=== PATIENT | female | born 1950 | race Two or more races ===

== ENCOUNTER 2018-03-19 01:54 | Emergency (ER) | payer OTHER ==
[~2018-03-19] VITALS: Ht 157.5 cm; Wt 49.9 kg
[~2018-03-19 01:54] MED LIST: VITAMINA C
[2018-03-19] MEDS ORDERED: PREVACID15 MG (02:43)
[2018-03-19] MEDS ORDERED: SINVASTATIN (02:43)
[2018-03-19] MEDS ORDERED: BUTALB-ACETAMI1 EACH PO (03:55)
== END 2018-03-19 10:21 | disposition home or self-care (01) ==
LOC: ER 01:54
DX: G44.209 Tension-type headache, unspecified, not intractable (principal)

== ENCOUNTER 2019-07-13 14:32 | Emergency (ER) | payer OTHER ==
[~2019-07-13] VITALS: Ht 157.5 cm; Wt 51.7 kg
[~2019-07-13 14:32] MED LIST changes: +BUTALB-ACETAMI1 EACH PO; +PREVACID15 MG; +SINVASTATIN
[2019-07-13] MEDS ORDERED: ASA81 MG PO (15:17)
[2019-07-13] MEDS ORDERED: IRON325 MG PO (15:18)
[2019-07-13] MEDS ORDERED: SINVASTATIN PO (15:18)
[2019-07-13] MEDS ORDERED: PREVACID30 MG PO (15:18)
[2019-07-13] MEDS ORDERED: EVISTA60 MG PO (15:18)
[2019-07-13] MEDS ORDERED: CALCIUM500 M2 PO (15:19)
== END 2019-07-13 22:11 | disposition home or self-care (01) ==
LOC: ER 14:32
DX: H81.13 Benign paroxysmal vertigo, bilateral (principal)

== ENCOUNTER 2020-02-11 00:57 | Emergency (ER) | payer OTHER ==
[~2020-02-11] VITALS: Ht 157.5 cm; Wt 50.8 kg
[~2020-02-11 00:57] MED LIST changes: +ASA81 MG PO; +CALCIUM500 M2 PO; +EVISTA60 MG PO; +IRON325 MG PO; +PREVACID30 MG PO; +SINVASTATIN PO
== END 2020-02-11 03:37 | disposition home or self-care (01) ==
LOC: ER 00:57
DX: F41.8 Other specified anxiety disorders (principal)

== ENCOUNTER → 2020-05-23 | Emergency (ER) | payer OTHER | END | disposition left against medical advice (07) | LOC: ER 00:08 | DX: Z53.20 Procedure and treatment not carried out because of patient's decision for unspecified reasons (principal) ==

== ENCOUNTER → 2020-06-21 | Emergency (ER) | payer OTHER | END | disposition left against medical advice (07) | LOC: ER 03:13 | DX: Z53.21 Procedure and treatment not carried out due to patient leaving prior to being seen by health care provider (principal) ==

== ENCOUNTER 2020-07-28 01:03 | Emergency (ER) | payer OTHER ==
[~2020-07-28] VITALS: Ht 157.5 cm; Wt 49.0 kg
[2020-07-28] MEDS ORDERED: SIMVASTATIN5 MG PO (01:16)
[2020-07-28] MEDS ORDERED: COZAAR50 MG PO (01:17)
[2020-07-28] MEDS ORDERED: VISTARIL25 MG PO (02:19)
== END 2020-07-28 02:25 | disposition home or self-care (01) ==
LOC: ER 01:03
DX: R06.02 Shortness of breath (principal); F41.8 Other specified anxiety disorders

== ENCOUNTER 2021-06-16 08:00 | Outpatient (CLI) | payer OTHER ==
[~2021-06-16 08:00] MED LIST changes: +COZAAR50 MG PO; +SIMVASTATIN5 MG PO; +VISTARIL25 MG PO
== END 2021-06-16 08:30 | disposition home or self-care (01) ==
LOC: PPH VACUNA 08:00
DX: Z23 Encounter for immunization (principal)

== ENCOUNTER 2021-10-15 09:50 | Outpatient (CLI) | payer OTHER | END 2021-10-15 10:15 | disposition home or self-care (01) | LOC: PPH VACUNA 09:50 | PROVIDERS: ATTEND Emergency Medicine Pediatric Emergency Medicine | DX: Z23 Encounter for immunization (principal) ==

== ENCOUNTER 2023-02-06 12:31 | Emergency (ER) | payer OTHER ==
[~2023-02-06] VITALS: Ht 165.1 cm; Wt 54.9 kg
== END 2023-02-06 15:40 ==
LOC: ER 12:31
DX: F41.8 Other specified anxiety disorders (principal); I10 Essential (primary) hypertension; J32.8 Other chronic sinusitis; M19.90 Unspecified osteoarthritis, unspecified site; M81.8 Other osteoporosis without current pathological fracture

== ENCOUNTER 2023-03-08 10:15 | Outpatient (CLI) | payer OTHER | END 2023-03-08 10:17 | disposition home or self-care (01) | LOC: SONOGRAMA 10:15 | PROVIDERS: ATTEND Pathology Anatomic Pathology | DX: R59.0 Localized enlarged lymph nodes (principal) ==

== ENCOUNTER 2023-03-23 08:29 | Outpatient (CLI) | payer OTHER | END 2023-03-23 08:32 | disposition home or self-care (01) | LOC: TOM 08:29 | PROVIDERS: ATTEND Otolaryngology Otology & Neurotology | DX: R59.0 Localized enlarged lymph nodes (principal) | CPT/HCPCS: 70492; Q9965 ==

== ENCOUNTER 2023-08-02 09:59 | Outpatient (CLI) | payer OTHER | END 2023-08-02 10:08 | disposition home or self-care (01) | LOC: SONOGRAMA 09:59 | PROVIDERS: ATTEND Pathology Anatomic Pathology & Clinical Pathology | DX: D37.030 Neoplasm of uncertain behavior of the parotid salivary glands (principal); K11.23 Chronic sialoadenitis ==

== ENCOUNTER 2023-12-12 22:20 | Emergency (ER) | payer OTHER ==
[~2023-12-12] VITALS: Ht 157.5 cm; Wt 52.2 kg
[2023-12-13] MEDS ORDERED: FAMOTIDINE/PF 20 MG/2 ML VIAL IV PUSH STA (00:31)
[2023-12-13] MEDS ORDERED: MAG HYDROX/ALUMINUM HYD/SIMETH 30 ML BLIST.PACK PO STA (00:32)
[2023-12-13] MEDS ORDERED: MAALOX ADVANCE1 EACH PO (01:22)
[2023-12-13] MEDS ORDERED: PEPCID40 MG PO (01:22)
== END 2023-12-13 01:25 ==
LOC: ER 22:21
DX: R10.13 Epigastric pain (principal); I10 Essential (primary) hypertension; Z88.8 Allergy status to other drugs, medicaments and biological substances
CPT/HCPCS: 93005; 96365; 99283; J3490

== ENCOUNTER 2024-01-25 12:48 | Emergency (ER) | payer OTHER ==
[~2024-01-25] VITALS: Ht 157.5 cm; Wt 48.5 kg
[~2024-01-25 12:48] MED LIST changes: +MAALOX ADVANCE1 EACH PO; +PEPCID40 MG PO
[2024-01-25] MEDS ORDERED: TYLENOL ARTHRI650 MG PO (17:23)
== END 2024-01-25 17:43 | disposition home or self-care (01) ==
LOC: ER 12:48
DX: M51.34 Other intervertebral disc degeneration, thoracic region (principal); M54.9 Dorsalgia, unspecified; I10 Essential (primary) hypertension; Z88.6 Allergy status to analgesic agent; Z88.9 Allergy status to unspecified drugs, medicaments and biological substances

== ENCOUNTER → 2024-01-28 | Emergency (ER) | payer OTHER ==
[~2024-01-28] VITALS: Ht 157.5 cm; Wt 48.5 kg
[~2024-01-28] MED LIST changes: +TYLENOL ARTHRI650 MG PO
== END | disposition home or self-care (01) ==
LOC: ER 12:30
DX: E16.1 Other hypoglycemia (principal); I10 Essential (primary) hypertension; Z88.8 Allergy status to other drugs, medicaments and biological substances